=== PATIENT | male | born 2000 | race Caucasian/White ===

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

== ENCOUNTER 2022-12-12 14:42 | Outpatient (CLI) | payer OTHER, SELFPAY ==
--- NOTE | 2022-12-12 15:00 | MR_ITS ---
[facility] [address] [facility] [address] Phone:?[phone] Fax:?[phone] Referring Physician Information: Toan Ramírez M.D. [address] [place] [id number] Phone:?[phone] Fax:?[phone] Patient:Jose Luis Chun D.O.B:?2000 Sex:?Male Phone:?[phone] [facility] MRN:?[id number] Exam Date:?12/12/2022 EXAM: MRI of the LEFT SHOULDER, without contrast CLINICAL HISTORY: Ongoing left shoulder instability. History of repeated dislocation injuries. COMPARISONS: Plain radiographs 12/03/2022 and 11/25/2021. TECHNICAL: MRI sequences of the left shoulder: Axials: PD, T2 Coronals: PD, STIR, T2 Sagittals: PD, T2 SEDATION: None CONTRAST: None FINDINGS: Bones: There is a 2.0 cm in craniocaudad dimension by 2.0 cm in AP dimension Hill-Sachs impaction injury measuring 0.8 cm in depth. Coracoacromial arch: Acromion: No os acromiale. Type I-II acromion. Acromiohumeral space: The bony distance is unremarkable. Acromioclavicular joint: No acute injury, arthropathy, or inferior hypertrophy. Coracoclavicular ligament: The coracoclavicular ligament is intact. Rotator cuff muscles/tendons: Supraspinatus: The supraspinatus tendon and muscle are intact. Infraspinatus: The infraspinatus tendon and muscle are intact. Teres minor: The teres minor tendon and muscle are intact. Subscapularis: The subscapularis tendon and muscle are intact. Labrum and glenohumeral joint: There is labral tear from the 3 o'clock position anteriorly through at least the 5 o'clock position anteroinferiorly best seen on axial images 17 through 19 and sagittal images 16 and 17 although it must be noted that this portion of the labrum is not optimally evaluated by this nonarthrogram study due to close apposition of the inferior glenohumeral ligament. Physiologic amount of joint fluid. No discrete chondral defect or subchondral bone marrow edema/cystic change is seen. No convincing evidence of capsular edema or thickening although evaluation is suboptimal because of lack of joint distention. Proximal biceps tendon, long head and short heads: The long and short heads of the proximal biceps tendon are intact. Bursae: Subacromial/subdeltoid: No convincing subacromial bursal thickening/bursitis. Subcoracoid: No convincing subcoracoid bursal thickening/bursitis. IMPRESSION: 1. Labral tear from the 3 o'clock position anteriorly through at least the 5 o'clock position anteroinferiorly although it must be noted that this portion of the labrum is not optimally evaluated by this nonarthrogram study due to close apposition of the inferior glenohumeral ligament. Fracture of the adjacent portion of the glenoid is not excluded by this nonarthrogram study. CT scan could be obtained to better evaluate the glenoid if clinically appropriate. 2. 2.0 x 2.0 cm Hill-Sachs impaction injury measuring 0.8 cm in depth. 3. No rotator cuff tendon pathology, rotator cuff muscular atrophy, or biceps pathology of the left shoulder. RCB Electronically signed on 12/13/2022 8:03:00 AM by Ryder Martinez M.D.
== END 2022-12-12 14:43 | disposition home or self-care (01) ==
LOC: MRI 14:43
PROVIDERS: Visit Provider Orthopaedic Surgery
DX: M25.312 Other instability, left shoulder (principal)
CPT/HCPCS: 73221